=== PATIENT | female | born 1985 | race African-American/Black ===

== ENCOUNTER 2017-02-28 01:19 | Emergency (ER) | payer OTHER ==
--- NOTE | 2017-02-28 02:15 | PDOC ---
History of Present Illness - General Chief Complaint: Vaginal Bleeding Stated Complaint: /14 WKS,SPOTTING Time Seen by Provider: 02/28/17 01:48 - History of Present Illness Initial Comments: 02/28/17 02:14 CHIEF COMPLAINT: vag bleeding in HISTORY OF PRESENT ILLNESS: 31 yo F 14 weeks F presents to ED with vaginal bleeding since "tonight around 11:30 pm." Patient reports "I always have some discomfort during my so I don't know if I'm having any pain." Patient reports that the bleeding "is like a period" and states that she has a right sided headache. She also reports "seeing black spots" since last week. She denies any shortness of breath, chest pain, palpitations, or swelling in her legs. She denies any recent travel or extended periods of immobility. PAST MEDICAL HISTORY: Denies past medical history FAMILY HISTORY: Denies SOCIAL HISTORY: Denies tobacco, alcohol, illicit drug use. SURGICAL HISTORY: Denies ALLERGIES: No known drug allergies REVIEW OF SYSTEMS General/Constitutional: Denies fever or chills. Denies weakness, weight change. HEENT: Denies change in vision. Denies ear pain or discharge. Denies sore throat. Cardiovascular: Denies chest pain or shortness of breath. Respiratory: Denies cough, wheezing, or hemoptysis. Gastrointestinal: "The nausea is always there." Denies vomiting, diarrhea or constipation. Denies rectal bleeding. Genitourinary: Denies dysuria, frequency, or change in urination. Musculoskeletal: Denies joint or muscle swelling or pain. Denies neck or back pain. Skin and breasts: Denies rash or easy bruising. Neurologic: R sided headache. Denies vertigo, loss of consciousness, or loss of sensation. PHYSICAL EXAM General Appearance: Well-appearing, appropriately dressed. No apparent distress. HEENT: EOMI, PERRLA, normal ENT inspection, normal voice, TMs normal, pharynx normal. No conjunctival pallor. No photophobia, scleral icterus. Neck: Supple. Trachea midline. No tenderness, rigidity, carotid bruit, stridor , lymphadenopathy, or thyromegaly. Respiratory/Chest: Lungs CTAB. No shortness of breath, chest tenderness, respiratory distress, accessory muscle use. No crackles, rales, rhonchi, stridor , wheezing, dullness Cardiovascular: RRR. S1, S2. Vascular Pulses: Dorsalis-Pedis (R): 2+, Dorsalis-Pedis (L): 2+ Gastrointestinal/Abdominal: Normal bowel sounds. Abdomen soft, non-distended. No tenderness or rebound tenderness. No organomegaly, pulsatile mass, guarding , hernia, hepatomegaly, splenomegaly. Pelvic Exam: did not perform as patient is past 1st trimester and ultrasound was completed and read with closed os prior to exam Musculoskeletal/Extremities: Normal inspection. FROM of all extremities, normal capillary refill. Pelvis Stable. No CVA tenderness. No tenderness to extremities, pedal edema, swelling, erythema or deformity. Integumentary: Appropriate color, dry, warm. 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 Fully oriented, alert. Appropriate mood/affect. Motor strength 5/5. No appreciable EOM palsy, facial droop or sensory deficit. Past History - Past Medical History Allergies/Adverse Reactions: Allergies Allergy/AdvReac Type Severity Reaction Status Date / Time No Known Allergies Allergy Verified 02/28/17 02:18 Home Medications: Ambulatory Orders NK [No Known Home Medication] 02/28/17 ED Treatment Course - LABORATORY CBC & Chemistry Diagram: 02/28/17 03:58 02/28/17 02:18 Medical Decision Making - Medical Decision Making 02/28/17 03:07 31 yo F 14 weeks F presents to ED with vaginal bleeding since "tonight around 11:30 pm." -CBC, CMP, PT/INR, beta hcg -TV US Hg 12.6, Hct 37.5 Ultrasound positive for twin live IUP with EGA of 13 weeks and 4 days for fetus A with normal FHR of 163 bpm. EGA of 13 weeks and 5 days of fetus B. Cervix is 4.1 cm in length and closed. Patient in significant amount of discomfort. Will hydrate with 500 cc IVF and give IV Tylenol, repeat CBC to confirm hemodynamic stability and reassess. Repeat Hg 11.6, Hct 34.3 Patient reassessed, states her headache is feeling better after she was able to take a nap. However, at this time patient states she is still actively bleeding. Discussed case with on-call OB Lei; she will come to evaluate patient. 02/28/17 05:06 Patient given strict instructions for bedrest for the next four days and follow up ultrasound with OBGYN this Monday. (See Dr. Odom's note.) OB referrals provided to patient; advised patient to heed advice from Dr. Odom and of signs and symptoms for return to ER; patient verbalized understanding and agrees to plan. *DC/Admit/Observation/Transfer Diagnosis at time of Disposition: Vaginal bleeding before 22 weeks gestation - Discharge Dispostion Disposition: HOME Condition at time of disposition: Stable Admit: No - Referrals Referrals: Korina Angela MD [Staff Physician] - Mary Oodm MD [Staff Physician] - William Agrawal MD [Staff Physician] - - Patient Instructions Printed Discharge Instructions: Support (Alternative Therapy), DI for Threatened , DI for Vaginal Bleeding During Additional Instructions: You MUST stay on strict bedrest for the next four days as directed by Dr. Odom. As per your discussion with Dr. Odom, please make the appointment with your OBGYN for a repeat ultrasound THIS MONDAY. If you develop any significant bleeding (more than one soaked pad an hour), palpitations, shortness of breath, dizziness, weakness, swelling in your legs, or ANY new or concerning symptoms, please return to the ER immediately. - Post Discharge Activity Forms/Work/School Notes: Back to Work
[2017-02-28 02:18] VITALS: BP 133/70; PULSE 73; TEMP 98.7; BMI 26.5
[2017-02-28 02:37] LABS: URINE APPEARANCE CLEAR; URINE BILIRUBIN NEGATIVE (NEGATIVE); URINE BLOOD 3+ (NEGATIVE); URINE COLOR LTYELLOW; URINE GLUCOSE (UA) NEGATIVE (NEGATIVE); URINE KETONE NEGATIVE (NEGATIVE); URINE NITRITE NEGATIVE (NEGATIVE); URINE PROTEIN NEGATIVE (NEGATIVE); URINE UROBILINOGEN NEGATIVE mg/dL (0.2-1.0)
[2017-02-28 02:42] LABS: BASOPHIL 0.8 % (0-2.0); EOSINOPHIL 1.9 % (0-4.5); MCHC 33.7 g/dl (32.0-36.0); MEAN CELL VOLUME 91.9 fl (80-96); MEAN PLT VOLUME 9.4 fl (7.5-11.1); NEUTROPHILS 57.8 % (42.8-82.8); PLATELET COUNT 190 K/MM3 (134-434); RDW 14.4 % (11.6-15.6); WHITE BLOOD COUNT 8.1 K/mm3 (4.0-10.0)
[2017-02-28 02:49] LABS: URINE MUCUS RARE; URINE RBC 22 /hpf (0-3)
[2017-02-28 03:02] LABS: ALBUMIN 3.2 g/dl (3.4-5.0); ANION GAP 10 (8-16); BILIRUBIN,TOTAL 0.4 mg/dL (0.2-1.0); CALCIUM 8.4 mg/dL (8.5-10.1); CO2 24 mmol/L (21-32); CREATININE 0.6 mg/dL (0.55-1.02); GLUCOSE,RANDOM 93 mg/dL (74-106); SGOT/AST 7 U/L (15-37); SGPT/ALT 23 U/L (12-78); TOT PROT 6.9 g/dl (6.4-8.2)
[2017-02-28 03:03] LABS: ALK PHOS 63 U/L (45-117)
[2017-02-28] MEDS ORDERED: ACETAMINOPHEN 1000 MG/100 ML VIAL (NON FORMULARY) IVPB ONE (03:12)
[2017-02-28] MEDS ORDERED: SODIUM CHLORIDE 0.9% 1000 ML INFUS.BAG IV ONE ×2 (03:12→03:15)
[2017-02-28] MEDS ORDERED: ACETAMINOPHEN INJECTION 100 ML IVPB ONE (03:23)
[2017-02-28 04:06] LABS: BASOPHIL 0.8 % (0-2.0); EOSINOPHIL 1.6 % (0-4.5); MCH 30.9 pg (25.7-33.7); MCHC 33.7 g/dl (32.0-36.0); MEAN CELL VOLUME 91.5 fl (80-96); MEAN PLT VOLUME 9.2 fl (7.5-11.1); NEUTROPHILS 57.7 % (42.8-82.8); PLATELET COUNT 173 K/MM3 (134-434); RDW 14.5 % (11.6-15.6); WHITE BLOOD COUNT 7.9 K/mm3 (4.0-10.0)
--- NOTE | 2017-02-28 05:46 | CON.OBG ---
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 Patient states that she had a Nuvaring when she found out that she was ; and has removed it since. She has not started care yet but she had a sonogram done showing evidence of twin gestation. She denies any abdominal cramps. She denies any recent sexual activities. She states that bleeding started while she was in bed. 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 History of Recent Travel: No Home Medications - Allergies Allergies/Adverse Reactions: Allergies Allergy/AdvReac Type Severity Reaction Status Date / Time No Known Allergies Allergy Verified 02/28/17 02:18 - Home Medications Home Medications: Ambulatory Orders NK [No Known Home Medication] 02/28/17 Family Disease History - Family Disease History Family History: Unremarkable Review of Systems - Review of Systems Constitutional: reports: No Symptoms Eyes: reports: No Symptoms HENT: reports: No Symptoms Neck: reports: No Symptoms Cardiovascular: reports: No Symptoms Respiratory: reports: No Symptoms Gastrointestinal: reports: No Symptoms Genitourinary: reports: Vaginal Bleeding Breasts: reports: No Symptoms Reported Musculoskeletal: reports: No Symptoms Integumentary: reports: No Symptoms Neurological: reports: No Symptoms Endocrine: reports: No Symptoms Hematology/Lymphatic: reports: No Symptoms Psychiatric: reports: No Symptoms Pain Intensity: 0 Physical Exam-AGRICULTURE ENGINEER Vital Signs: Vital Signs Temperature 98.7 F 02/28/17 01:49 Pulse Rate 73 02/28/17 01:49 Respiratory Rate 16 02/28/17 01:49 Blood Pressure 133/70 02/28/17 01:49 O2 Sat by Pulse Oximetry (%) 100 02/28/17 01:49 Constitutional: Yes: Well Nourished Eyes: Yes: Conjunctiva Clear HENT: Yes: Atraumatic Neck: Yes: Supple, Trachea Midline Cardiovascular: Yes: Regular Rate and Rhythm Respiratory: Yes: Regular, CTA Bilaterally Gastrointestinal: Yes: Normal Bowel Sounds External Genitalia: Yes: Normal Vaginal Exam: Yes: Discharge (Bloody discharge) Cervix: Yes: Other (Os closed) Uterus: Yes: Other ( Gravid) Breast(s): Yes: WNL Musculoskeletal: Yes: WNL Extremities: Yes: WNL Neurological: Yes: Alert, Oriented ...Motor Strength: WNL Psychiatric: Yes: Alert, Oriented Labs: CBC, BMP 02/28/17 03:58 02/28/17 02:18 Problem List - Problems (1) Twin gestation in second trimester Code(s): O30.002 - TWIN PREG, UNSP NUM PLCNTA & AMNIO SACS, SECOND TRIMESTER Qualifiers: Multiple gestation type: unspecified Qualified Code(s): O30.002 - Twin , unspecified number of placenta and unspecified number of amniotic sacs, second trimester; O30.002 - Twin , unspecified number of placenta and unspecified number of amniotic sacs, second trimester Assessment/Plan IUP @ 13 weeks Twin gestation Vaginal bleeding in Strict bed rest recommended Follow up with Livestock Commission Agent this week
[2017-02-28 08:19] LABS: URINE WBC 2 /hpf (3-5)
[2017-02-28 10:17] LABS: URINE LEUK ESTERASE Negative (NEGATIVE)
== END 2017-02-28 05:18 | disposition home or self-care (01) ==
LOC: JER 01:19
PROC: 3E033NZ Introduction of Analgesics, Hypnotics, Sedatives into Peripheral Vein, Percutaneous Approach (ICD-10-PCS; principal; 2017-02-28)
DX: O30.001 Twin pregnancy, unspecified number of placenta and unspecified number of amniotic sacs, first trimester (principal); O20.8 Other hemorrhage in early pregnancy; Z3A.13 13 weeks gestation of pregnancy
CPT/HCPCS: 36415; 76801-TC; 80053; 81003; 81015; 84702; 85025; 86850; 86900; 86901; 87086; 99282-25

== ENCOUNTER 2017-06-13 11:30 | Inpatient (IN) | payer OTHER ==
[2017-06-13] MEDS ORDERED: DEXTROSE 5%-LACTATED RINGERS 500 ML IV ONE (12:00)
[2017-06-13] MEDS ORDERED: BETAMET ACET/BETAMET NA PH 30 MG/5 ML VIAL ONE (12:43)
[2017-06-13] MEDS ORDERED: DEXTROSE 5%-LACTATED RINGERS 1,000 ML IV SCH (13:00)
[2017-06-13] MEDS ORDERED: BETAMET ACET/BETAMET NA PH 30 MG/5 ML VIAL IM ONE (13:00)
[2017-06-13 13:09] LABS: BASO % 0.2 % (0-2.0); EOS % 1.7 % (0-4.5); HEMATOCRIT 36.2 % (32.4-45.2); HEMOGLOBIN 11.9 GM/dL (10.7-15.3); LYMPH % 19.9 % (8-40); MCH 30.9 pg (25.7-33.7); MEAN CELL VOLUME 93.5 fl (80-96); MEAN PLT VOLUME 9.3 fl (7.5-11.1); MONO % 7.3 % (3.8-10.2); NEUT % 70.9 % (42.8-82.8); PLATELET COUNT 150 K/MM3 (134-434); RBC 3.87 M/mm3 (3.60-5.2); RDW 14.6 % (11.6-15.6); WHITE BLOOD COUNT 6.8 K/mm3 (4.0-10.0)
[2017-06-13 13:16] VITALS: BMI 32.8
[2017-06-13 13:25] LABS: INR 0.96 (0.82-1.09); PROTHROMBIN TIME (PATIENT) 10.8 SEC (9.98-11.88)
[2017-06-13 13:27] LABS: ACTIVATED PTT 27.9 SECONDS (26.9-34.4)
[2017-06-13 13:40] LABS: ANION GAP 7 (8-16); BLOOD UREA NITROGEN 4 mg/dL (7-18); CALCIUM 8.6 mg/dL (8.5-10.1); CHLORIDE 105 mmol/L (98-107); CO2 27 mmol/L (21-32); CREATININE 0.6 mg/dL (0.55-1.02); GLUCOSE,RANDOM 139 mg/dL (74-106); POTASSIUM 3.1 mmol/L (3.5-5.1); SODIUM 139 mmol/L (136-145)
[2017-06-13] MEDS: DEXTROSE 5%-LACTATED RINGERS 1,000 ML IV SCH ×2 (14:30→22:51)
[2017-06-13] MEDS ORDERED: ELECTROLYTE-148 SOLN 1,000 ML IV SCH (21:30)
--- NOTE | 2017-06-13 22:00 | HP ---
Past Medical History - Admission Chief Complaint: Cervical incompetence. 28 weeks. abdominal pain History of Present Illness: 32 yo EDC with twin gestation showing cervical incompetence and funneling done by [facility] pt was sent to LD from [facility] USg showing funneling and 1-2 cm cervix pt admitted for steroids and monitoring o bleeding History Source: Patient Limitations to Obtaining History: No Limitations - Past Medical History ...: 3 ...Para: 2 ...Term: 2 ...: 0 ...Spon : 0 ...Induced : 0 ...Multiple Gestation: 1 ...EDC by Sono: 09/04/17 - Past Surgical History Past Surgical History: Yes: None Hx Myomectomy: No Hx Transabdominal Cerclage: No - Smoking History Smoking history: Never smoked - Alcohol/Substance Use Hx Alcohol Use: No History of Substance Use: reports: None - Social History Usual Living Arrangement: Yes: With 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 History of Recent Travel: No Home Medications - Allergies Allergies/Adverse Reactions: Allergies Allergy/AdvReac Type Severity Reaction Status Date / Time No Known Allergies Allergy Verified 02/28/17 02:18 - Home Medications Home Medications: Ambulatory Orders Vitamins (Sjr) - 1 tab PO DAILY 06/13/17 Unisom 1 tab PO DAILY 06/13/17 Review of Systems - Review of Systems Constitutional: reports: No Symptoms Eyes: reports: No Symptoms HENT: reports: No Symptoms Neck: reports: No Symptoms Cardiovascular: reports: No Symptoms Respiratory: reports: No Symptoms Gastrointestinal: reports: Abdominal Pain Genitourinary: reports: No Symptoms Breasts: reports: No Symptoms Reported Musculoskeletal: reports: No Symptoms Integumentary: reports: No Symptoms Neurological: reports: No Symptoms Endocrine: reports: No Symptoms Hematology/Lymphatic: reports: No Symptoms Psychiatric: reports: No Symptoms Physical Exam - Maternity Vital Signs: Vital Signs Temperature 98.7 F 06/13/17 14:00 Pulse Rate 86 06/13/17 15:00 Respiratory Rate 20 06/13/17 15:00 Blood Pressure 146/79 06/13/17 15:00 O2 Sat by Pulse Oximetry (%) Constitutional: Yes: Well Nourished, No Distress Cardiovascular: Yes: WNL Lungs: Clear to auscultation Breast(s): Yes: WNL - Abdominal Exam/OB Number of Fetuses: Multiple Contractions: Yes Regularity: Irregular Intensity: Unaware Monitor Mode: External Category: I Accelerations: Non-Uniform Decelerations: None - Vaginal Exam/OB Vaginal Bleediing: No Speculum Exam: Yes Dilatation (cm): closed Effacement (%): 70 % Amniotic Membrane Status: Intact - Physical Exam Musculoskeletal: Yes: WNL Extremities: Yes: WNL Edema: No - Labs Lab Results: CBC, BMP 06/13/17 12:50 06/13/17 12:50 Hemorrhage Risk Assessment - Risk Factors Risk Score: 0 Risk Level: Low Risk Problem List - Problems (1) Twin gestation in second trimester Code(s): O30.002 - TWIN PREG, UNSP NUM PLCNTA & AMNIO SACS, SECOND TRIMESTER Qualifiers: Assessment/Plan IUP at 28 week twin gestation cervical incompetence ro UTI Cat 1 Plan Steriods x 2 doses EFM monitoring bed rest IVF if stable transfer to floor
[2017-06-13 22:53] LABS: URINE APPEARANCE CLEAR; URINE BILIRUBIN NEGATIVE (NEGATIVE); URINE BLOOD NEGATIVE (NEGATIVE); URINE COLOR COLORLESS; URINE GLUCOSE (UA) 3+ (NEGATIVE); URINE KETONE NEGATIVE (NEGATIVE); URINE LEUK ESTERASE NEGATIVE (NEGATIVE); URINE NITRITE NEGATIVE (NEGATIVE); URINE PROTEIN NEGATIVE (NEGATIVE); URINE UROBILINOGEN NEGATIVE mg/dL (0.2-1.0)
[2017-06-14] MEDS: DEXTROSE 5%-LACTATED RINGERS 1,000 ML IV SCH (05:21)
--- NOTE | 2017-06-14 06:31 | PN ---
Progress Note (SOAP) - Subjective Chief Complaint: Pt doing better less pain pt getting 2nd steroid shot today - Current Medications Current Medications: Active Medications Betamethasone Acet/Betameth SodPhos (Celestone Soluspan -) 12.5 mg IM [facility] Stop: 06/14/17 16:00 Dextrose/Lactated Ringer's (D5-Lr -) 1,000 mls @ 125 mls/hr IV ASDIR [facility] Last Admin: 06/14/17 05:21 Dose: 125 mls/hr Parenteral Electrolytes (Plasma-Lyte 148 -) 1,000 mls @ 125 mls/hr IV ASDIR [facility] - Objective Vital Signs: Vital Signs Temperature 98.2 F 06/14/17 05:54 Pulse Rate 90 06/14/17 05:54 Respiratory Rate 18 06/14/17 05:54 Blood Pressure 129/78 06/14/17 05:54 O2 Sat by Pulse Oximetry (%) Constitutional: Yes: Well Nourished, No Distress Gastrointestinal: Yes: WNL Breast(s): Yes: WNL Musculoskeletal: Yes: WNL Extremities: Yes: WNL Neurological: Yes: WNL, Alert, Oriented Labs Lab Results: CBC, BMP 06/13/17 12:50 06/13/17 12:50 Problem List - Problems (1) Twin gestation in second trimester Code(s): O30.002 - TWIN PREG, UNSP NUM PLCNTA & AMNIO SACS, SECOND TRIMESTER Qualifiers: (2) Cervical incompetence affecting management of in second trimester , antepartum Code(s): O34.32 - MATERNAL CARE FOR CERVICAL INCOMPETENCE, SECOND TRIMESTER Assessment/Plan IUP at 28 week twin gestation cervical incompetence Cat 1 Plan Steriods x 2 doses EFM monitoring bed rest at home needs disability IVF DC home if stable after steroid shot
[2017-06-14] MEDS ORDERED: BETAMET ACET/BETAMET NA PH 30 MG/5 ML VIAL IM SCH (08:00)
[2017-06-14 11:58] VITALS: BP 123/54; PULSE 93; TEMP 98.7
== END 2017-06-14 17:20 | disposition home or self-care (01) | DRG 782 ==
LOC: JDEL 11:30 → JLDR 12:00 → J3W 23:15
PROVIDERS: ADMIT Obstetrics & Gynecology; ATTEND Obstetrics & Gynecology
DX: O34.33 Maternal care for cervical incompetence, third trimester (principal); O30.093 Twin pregnancy, unable to determine number of placenta and number of amniotic sacs, third trimester; Z3A.28 28 weeks gestation of pregnancy
CPT/HCPCS: 36415; 80048; 81003; 85025; 85610; 85730; 86593; 86850; 86900; 86901; 87086; 96372

== ENCOUNTER 2017-07-07 06:40 | Inpatient (IN) | payer OTHER ==
[2017-07-07] MEDS ORDERED: AMPICILLIN - 2 GM in SODIUM CHLORIDE 100 ML IVPB ONE (08:19)
[2017-07-07] MEDS ORDERED: ELECTROLYTE-148 SOLN 1,000 ML IV SCH (08:30)
[2017-07-07 08:40] VITALS: BMI 34.4
[2017-07-07] MEDS ORDERED: AMPICILLIN SODIUM 2 GM VIAL ONE (08:42)
[2017-07-07 09:58] LABS: BASO % 0.4 % (0-2.0); EOS % 1.3 % (0-4.5); HEMATOCRIT 36.8 % (32.4-45.2); LYMPH % 13.2 % (8-40); MCH 30.5 pg (25.7-33.7); MCHC 32.6 g/dl (32.0-36.0); MEAN CELL VOLUME 93.7 fl (80-96); MEAN PLT VOLUME 9.7 fl (7.5-11.1); MONO % 13.3 % (3.8-10.2); NEUT % 71.8 % (42.8-82.8); PLATELET COUNT 134 K/MM3 (134-434); RBC 3.93 M/mm3 (3.60-5.2); RDW 14.3 % (11.6-15.6); WHITE BLOOD COUNT 7.3 K/mm3 (4.0-10.0)
--- NOTE | 2017-07-07 09:59 | HP ---
Past Medical History - Primary Care Physician PCP:: Korina Angela - Admission Chief Complaint: labor. 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 Travel: No Home Medications - Allergies Allergies/Adverse Reactions: Allergies Allergy/AdvReac Type Severity Reaction Status Date / Time No Known Allergies Allergy Verified 02/28/17 02:18 - Home Medications Home Medications: Ambulatory Orders Vitamins (Sjr) - 1 tab PO DAILY 06/13/17 Unisom 1 tab PO DAILY 06/13/17 Review of Systems - Review of Systems Constitutional: reports: No Symptoms Eyes: reports: No Symptoms HENT: reports: No Symptoms Neck: reports: No Symptoms Cardiovascular: reports: No Symptoms Respiratory: reports: No Symptoms Gastrointestinal: reports: Vomiting Blood Genitourinary: reports: Vaginal Bleeding Breasts: reports: No Symptoms Reported Musculoskeletal: reports: No Symptoms Integumentary: reports: No Symptoms Neurological: reports: No Symptoms Endocrine: reports: No Symptoms Hematology/Lymphatic: reports: No Symptoms Psychiatric: reports: No Symptoms Physical Exam - Maternity Vital Signs: Vital Signs Temperature 98.2 F 07/07/17 08:31 Pulse Rate 101 H 07/07/17 08:31 Respiratory Rate 20 07/07/17 08:31 Blood Pressure 130/81 07/07/17 08:31 O2 Sat by Pulse Oximetry (%) Constitutional: Yes: Well Nourished, Mild Distress Neck: Yes: WNL Cardiovascular: Yes: WNL Lungs: Clear to auscultation Breast(s): Yes: WNL - Abdominal Exam/OB Fundal Height: 34 Number of Fetuses: Multiple Presentation: Vertex Contractions: Yes Regularity: Regular Intensity: Moderate Category: I Accelerations: Non-Uniform Decelerations: None - Vaginal Exam/OB Vaginal Bleediing: Yes, Light Dilatation (cm): closed Effacement (%): 50 Amniotic Membrane Status: Intact Presentation: Vertex/Position Station: -1 - Physical Exam Musculoskeletal: Yes: WNL Extremities: Yes: WNL Edema: No Psychiatric: Yes: WNL, Alert, Oriented Hemorrhage Risk Assessment - Risk Factors Medium Risk Factors: Yes: Multiple gestation Risk Score: 1 Risk Level: Medium Risk Problem List - Problems (1) labor in third trimester Code(s): O60.03 - LABOR WITHOUT DELIVERY, THIRD TRIMESTER Qualifiers: Fetus number: fetus 1 of multiple gestation (2) Twin gestation in third trimester Code(s): O30.003 - TWIN PREG, UNSP NUM PLCNTA & AMNIO SACS, THIRD TRIMESTER (3) Vaginal bleeding during , antepartum Code(s): O46.90 - ANTEPARTUM HEMORRHAGE, UNSPECIFIED, UNSPECIFIED TRIMESTER Assessment/Plan Twin gestation at 32 week labor vaginal bleeding Plan admit Mgso4 GBS proph ampiciliin
[2017-07-07] MEDS ORDERED: BETAMET ACET/BETAMET NA PH 30 MG/5 ML VIAL IM ONE (10:00)
[2017-07-07 10:10] LABS: INR 0.95 (0.82-1.09); PROTHROMBIN TIME (PATIENT) 10.7 SEC (9.98-11.88)
[2017-07-07 10:13] LABS: ACTIVATED PTT 31.1 SECONDS (26.9-34.4)
[2017-07-07] MEDS ORDERED: MAGNESIUM 4GM/H20 - 4 GM/100 ML IVPB IVPB ONE (10:25)
[2017-07-07] MEDS ORDERED: MAGNESIUM SULFATE 20GM/500ML - 20 GM/500 ML INFUS.BAG ONE ×2 (10:25→17:44)
[2017-07-07] MEDS ORDERED: BETAMET ACET/BETAMET NA PH 30 MG/5 ML VIAL ONE (10:25)
[2017-07-07] MEDS ORDERED: MAGNESIUM 4GM/H20 - 4 GM/100 ML IVPB IVPB SCH (11:00)
[2017-07-07] MEDS: ELECTROLYTE-148 SOLN 1,000 ML IV SCH (11:00)
[2017-07-07] MEDS ORDERED: MAGNESIUM SULFATE 20GM/500ML - 20 GM/500 ML INFUS.BAG IVPB SCH (11:30)
[2017-07-07] MEDS: AMPICILLIN - 1 GM in SODIUM CHLORIDE 100 ML IVPB SCH ×3 (12:57→21:00)
[2017-07-07] MEDS ORDERED: AMPICILLIN SODIUM 1 GM VIAL ONE (17:11)
[2017-07-07] MEDS ORDERED: ACETAMINOPHEN 325 MG TABLET (FP) ONE (17:24)
[2017-07-07] MEDS ORDERED: ACETAMINOPHEN 325 MG TABLET (FP) PO ONE (17:30)
--- NOTE | 2017-07-07 23:46 | PN ---
Ante-Partal Exam - Subjective Subjective: Pt still with contraction - improving Vital Signs: Vital Signs Temperature 98.9 F 07/07/17 23:00 Pulse Rate 91 H 07/07/17 23:00 Respiratory Rate 18 07/07/17 23:00 Blood Pressure 150/74 07/07/17 23:00 O2 Sat by Pulse Oximetry (%) Bleeding: No Headache: No Visual changes: No Right upper quadrant pain: No - Contractions Contractions: Yes Regularity: Regular Intensity: Mild Monitor Mode: External - Exam during Labor Variability: Moderate Category: I Monitor Accelerations: Present Monitor Decelerations: None Exam: Vaginal Dilatation (cm): closed Amniotic Membrane Status: Intact Presentation: Vertex Station: -1 - Intrapartum Hemorrhage Risk Risk Score: 1 Risk Level: Medium Risk - Assessment/Plan Assessment/Plan: IUP 32 weeks Twin Gestation labor plan bed rest continue MgSo4 Mag level continue abs
[2017-07-08] MEDS ORDERED: ACETAMINOPHEN 325 MG TABLET (FP) PO ONE
[2017-07-08] MEDS ORDERED: ACETAMINOPHEN 325 MG TABLET (FP) ONE (00:20)
[2017-07-08] MEDS: AMPICILLIN - 1 GM in SODIUM CHLORIDE 100 ML IVPB SCH ×3 (03:00→22:12)
[2017-07-08] MEDS ORDERED: ELECTROLYTE-148 SOLN 1,000 ML IV ONE (06:30)
[2017-07-08 08:06] LABS: URINE APPEARANCE CLEAR; URINE BILIRUBIN NEGATIVE (NEGATIVE); URINE BLOOD 3+ (NEGATIVE); URINE COLOR LTYELLOW; URINE GLUCOSE (UA) NEGATIVE (NEGATIVE); URINE KETONE 2+ (NEGATIVE); URINE LEUK ESTERASE NEGATIVE (NEGATIVE); URINE NITRITE NEGATIVE (NEGATIVE); URINE PROTEIN NEGATIVE (NEGATIVE); URINE UROBILINOGEN NEGATIVE mg/dL (0.2-1.0)
[2017-07-08] MEDS ORDERED: MAGNESIUM SULFATE 20GM/500ML - 20 GM/500 ML INFUS.BAG IVPB SCH (08:15)
[2017-07-08 08:40] LABS: EPI CELLS RARE /HPF (FEW)
[2017-07-08] MEDS ORDERED: AMPICILLIN SODIUM 1 GM VIAL ONE (09:18)
[2017-07-08] MEDS ORDERED: BETAMET ACET/BETAMET NA PH 30 MG/5 ML VIAL IM ONE (10:01)
--- NOTE | 2017-07-08 23:20 | PN ---
Ante-Partal Exam - Subjective Subjective: Pt feeling better Less contractions Pt on 2 gm of MagS04 SP shot of steroids Vital Signs: Vital Signs Temperature 99.2 F 07/08/17 18:00 Pulse Rate 93 H 07/08/17 21:49 Respiratory Rate 20 07/08/17 21:49 Blood Pressure 136/85 07/08/17 21:49 O2 Sat by Pulse Oximetry (%) Bleeding: No Headache: No Visual changes: No Right upper quadrant pain: No - Contractions Contractions: Yes Regularity: Irregular Intensity: Mild Monitor Mode: External - Exam during Labor Variability: Moderate Category: I Monitor Accelerations: Present Monitor Decelerations: None Presentation: Vertex - Intrapartum Hemorrhage Risk Risk Score: 0 Risk Level: Low Risk - Assessment/Plan Assessment/Plan: Twin gestation Peterm Labor Plan AprS04 Transfer to Antepartum if stable Beta Metasone IM NST Q shift
[2017-07-09] MEDS: AMPICILLIN - 1 GM in SODIUM CHLORIDE 100 ML IVPB SCH ×2 (06:55→12:27)
--- NOTE | 2017-07-09 08:50 | PN ---
Progress Note (SOAP) - Subjective Chief Complaint: Pt with contractions mild 3/hour no rom, bleeding +AFM - Current Medications Current Medications: Active Medications Parenteral Electrolytes (Plasma-Lyte 148 -) 1,000 mls @ 75 mls/hr IV ASDIR [facility] Last Admin: 07/07/17 11:00 Dose: 75 mls/hr Ampicillin Sodium 1 gm/ Sodium (Chloride) 100 mls @ 200 mls/hr IVPB Q6H [facility] [place] Last Admin: 07/09/17 06:55 Dose: Not Given - Objective Vital Signs: Vital Signs Temperature 98.8 F 07/09/17 06:00 Pulse Rate 90 07/09/17 06:00 Respiratory Rate 20 07/09/17 06:00 Blood Pressure 139/79 07/09/17 06:00 O2 Sat by Pulse Oximetry (%) Constitutional: Yes: Well Nourished, No Distress Gastrointestinal: Yes: WNL, Normal Bowel Sounds, Soft Genitourinary: Yes: Breast(s): Yes: WNL Musculoskeletal: Yes: WNL Extremities: Yes: WNL Peripheral Pulses WNL: No Edema: No Neurological: Yes: WNL, Alert, Oriented Psychiatric: Yes: WNL, Alert Labs Lab Results: CBC, BMP 07/07/17 09:35 Problem List - Problems (1) Twin gestation in third trimester Code(s): O30.003 - TWIN PREG, UNSP NUM PLCNTA & AMNIO SACS, THIRD TRIMESTER (2) labor in third trimester Code(s): O60.03 - LABOR WITHOUT DELIVERY, THIRD TRIMESTER Qualifiers: Fetus number: fetus 1 of multiple gestation
[2017-07-09] MEDS ORDERED: RANITIDINE HCL 150 MG TABLET (FP) PO SCH (10:00)
[2017-07-09] MEDS: ELECTROLYTE-148 SOLN 1,000 ML IV SCH (12:28)
[2017-07-09 19:06] VITALS: BP 152/86; PULSE 72; TEMP 98.4
--- NOTE | 2017-07-10 22:42 | DS ---
Physical Exam-[employer] WORK[employer] Vital Signs: Vital Signs Temperature 98.4 F 07/09/17 18:00 Pulse Rate 72 07/09/17 18:00 Respiratory Rate 20 07/09/17 18:00 Blood Pressure 152/86 07/09/17 18:00 O2 Sat by Pulse Oximetry (%) Constitutional: Yes: Well Nourished, No Distress Cardiovascular: Yes: WNL Respiratory: Yes: WNL Gastrointestinal: Yes: WNL, Normal Bowel Sounds, Soft Renal/: Yes: (twins) Breast(s): Yes: WNL Musculoskeletal: Yes: WNL Extremities: Yes: WNL Edema: No Neurological: Yes: WNL, Alert, Oriented Labs: CBC, BMP 07/07/17 09:35 Discharge Summary Reason For Visit: LABOR Labor Twin Gestation at 32 week sp nicole s/p mag Plan DC home RV 1 week to office Hospital Course: Magnesium Sulfate Steroids unremarkable Condition: Good - Instructions Diet, Activity, Other Instructions: Physical activity Bed rest with bath room no climbing stairs or heavy lifting Diet There are no dietary restrictions. Eat healthy, high-fiber foods. Drink 6 to 8 glasses of liquid each day. This will assist in keeping your bowels are regular. Pain management You may take Tylenol or acetaminophen or Ibuprofen (for example, Motrin, Advil etc.) from my pain prescription medication is ordered should be taken as prescribed for moderate to severe pain. Call MD for any of the following: Severe pain or Labor Rupture of membranes Fever of 101 or higher Excessive bleeding or rupture of membranes Inability to urinate Referrals: Korina Angela MD [Staff Physician] - (Follow up as per Dr Angela instructions.) Disposition: HOME - Home Medications Comprehensive Discharge Medication List: Ambulatory Orders Vitamins (Sjr) - 1 tab PO DAILY 06/13/17 Unisom 1 tab PO DAILY 06/13/17
== END 2017-07-09 19:05 | disposition home or self-care (01) | DRG 778 ==
LOC: JDEL 06:40 → JLDR 08:10 → J3W 07-08 12:52
PROVIDERS: ADMIT Obstetrics & Gynecology; ATTEND Obstetrics & Gynecology
DX: O60.03 Preterm labor without delivery, third trimester (principal); O30.003 Twin pregnancy, unspecified number of placenta and unspecified number of amniotic sacs, third trimester; Z3A.32 32 weeks gestation of pregnancy
CPT/HCPCS: 36415; 81003; 81015; 83735; 85025; 85610; 85730; 86593; 86850; 86900; 86901; 87086; 87186; 96372

== ENCOUNTER 2017-07-24 17:45 | Inpatient (IN) | payer OTHER ==
[2017-07-24] MEDS ORDERED: ELECTROLYTE-148 SOLN 1,000 ML IV ONE (18:00)
[2017-07-24 19:18] VITALS: BMI 32.8
--- NOTE | 2017-07-24 19:44 | HP ---
Past Medical History - Primary Care Physician PCP:: Korina Angela - Admission Chief Complaint: contractions. Twins at 34 week. Hypertension. Breech Presentaiton History of Present Illness: 32 yo EDC 09/04/17 EGA 34 week with twin gestation with shortened cervix sp admissions for labor admitted for elevated BP and contractions Breech/breech presentation no rom, bleeding or LENZ or RUQ pain History Source: Patient Limitations to Obtaining History: No Limitations - Past Medical History ...: 3 ...Para: 2 ...Term: 2 ...: 0 ...Spon : 0 ...Induced : 0 ...Multiple Gestation: 0 ...LMP: 11/28/16 ... 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 History of Recent Travel: No Home Medications - Allergies Allergies/Adverse Reactions: Allergies Allergy/AdvReac Type Severity Reaction Status Date / Time No Known Allergies Allergy Verified 07/25/17 07:17 - Home Medications Home Medications: Ambulatory Orders Labetalol HCl [Normodyne -] 200 mg PO BID #60 tablet 07/25/17 Pnv No.95/Ferrous Fum/Folic AC [ Vitamin Tablet] 1 each PO DAILY Progesterone, Micronized [Progesterone] 100 mg PO DAILY 07/25/17 Physical Exam - Maternity Vital Signs: Vital Signs Temperature 98.3 F 07/24/17 19:08 Pulse Rate 70 07/24/17 19:08 Respiratory Rate 20 07/24/17 19:08 Blood Pressure 169/95 07/24/17 19:08 O2 Sat by Pulse Oximetry (%) Constitutional: Yes: Well Nourished, No Distress - Abdominal Exam/OB Number of Fetuses: Single Presentation: Breech Contractions: Yes Regularity: Regular Category: I Accelerations: None Decelerations: None - Vaginal Exam/OB Dilatation (cm): closed Effacement (%): 80 Amniotic Membrane Status: Intact Presentation: Asif Breech - Physical Exam Musculoskeletal: Yes: WNL Extremities: Yes: WNL Integumentary: Yes: WNL Psychiatric: Yes: WNL, Alert, Oriented Hemorrhage Risk Assessment - Risk Factors Medium Risk Factors: Yes: Multiple gestation Risk Score: 1 Risk Level: Medium Risk Problem List - Problems (1) Cervical incompetence affecting management of in third trimester, antepartum Code(s): O34.33 - MATERNAL CARE FOR CERVICAL INCOMPETENCE, THIRD TRIMESTER (2) labor in third trimester Code(s): O60.03 - LABOR WITHOUT DELIVERY, THIRD TRIMESTER (3) Twin gestation in third trimester Code(s): O30.003 - TWIN PREG, UNSP NUM PLCNTA & AMNIO SACS, THIRD TRIMESTER (4) Hypertension affecting in third trimester Code(s): O16.3 - UNSPECIFIED MATERNAL HYPERTENSION, THIRD TRIMESTER (5) Breech presentation, antepartum Code(s): O32.1XX0 - MATERNAL CARE FOR BREECH PRESENTATION, UNSP Qualifiers: Fetus number: fetus 2 of multiple gestation Qualified Code(s): O32.1XX2 - Maternal care for breech presentation, fetus 2 Assessment/Plan IUP at 34 week Hypertension labor r/o preeclampsia incompetent cervix Breech presentation Plan Admit labetalol 200mg po bid PE labs Will do CS if labs abnormal
[2017-07-24] MEDS: LABETALOL HCL 200 MG TABLET (FP) PO SCH (19:50)
[2017-07-24] MEDS ORDERED: LABETALOL HCL 200 MG TABLET (FP) PO SCH ×2 (20:06→22:00)
[2017-07-24 20:18] LABS: BASO % 0.3 % (0-2.0); EOS % 1.9 % (0-4.5); HEMOGLOBIN 14.3 GM/dL (10.7-15.3); LYMPH % 23.7 % (8-40); MCH 31.3 pg (25.7-33.7); MCHC 34.1 g/dl (32.0-36.0); MEAN CELL VOLUME 91.9 fl (80-96); MEAN PLT VOLUME 10.5 fl (7.5-11.1); MONO % 9.3 % (3.8-10.2); NEUT % 64.8 % (42.8-82.8); PLATELET COUNT 154 K/MM3 (134-434); RBC 4.57 M/mm3 (3.60-5.2); RDW 14.4 % (11.6-15.6); WHITE BLOOD COUNT 7.7 K/mm3 (4.0-10.0)
[2017-07-24] MEDS ORDERED: ACETAMINOPHEN 325 MG TABLET (FP) ONE (20:18)
[2017-07-24 20:19] LABS: URINE APPEARANCE CLEAR; URINE BILIRUBIN NEGATIVE (NEGATIVE); URINE BLOOD NEGATIVE (NEGATIVE); URINE COLOR LTYELLOW; URINE GLUCOSE (UA) NEGATIVE (NEGATIVE); URINE KETONE NEGATIVE (NEGATIVE); URINE LEUK ESTERASE NEGATIVE (NEGATIVE); URINE NITRITE NEGATIVE (NEGATIVE); URINE UROBILINOGEN NEGATIVE mg/dL (0.2-1.0)
[2017-07-24 20:27] LABS: URINE PROTEIN 1+ (NEGATIVE)
[2017-07-24 20:34] LABS: INR 0.92 (0.82-1.09); PROTHROMBIN TIME (PATIENT) 10.4 SEC (9.98-11.88)
[2017-07-24 20:37] LABS: ACTIVATED PTT 27.8 SECONDS (26.9-34.4)
[2017-07-24 20:52] LABS: ANION GAP 11 (8-16); BLOOD UREA NITROGEN 4 mg/dL (7-18); CALCIUM 8.8 mg/dL (8.5-10.1); CHLORIDE 102 mmol/L (98-107); CO2 23 mmol/L (21-32); CREATININE 0.6 mg/dL (0.55-1.02); GAMMA GLUTAMYL TRANSPEPTIDASE 37 U/L (5-85); GLUCOSE,RANDOM 72 mg/dL (74-106); POTASSIUM 4.1 mmol/L (3.5-5.1); SGOT/AST 15 U/L (15-37); SGPT/ALT 13 U/L (12-78); SODIUM 136 mmol/L (136-145)
[2017-07-24 20:56] LABS: URIC ACID 3.8 mg/dL (2.6-7.2)
[2017-07-24 21:08] LABS: EPI CELLS RARE /HPF (FEW)
--- NOTE | 2017-07-24 21:10 | PN ---
Ante-Partal Exam - Subjective Subjective: Pt with headache Vital Signs: Vital Signs Temperature 98.3 F 07/24/17 19:08 Pulse Rate 94 H 07/24/17 20:15 Respiratory Rate 20 07/24/17 20:15 Blood Pressure 159/97 07/24/17 20:15 O2 Sat by Pulse Oximetry (%) Bleeding: No Headache: Yes Visual changes: No Right upper quadrant pain: No - Contractions Contractions: Yes Regularity: Regular Intensity: Mild/Mod Monitor Mode: External - Exam during Labor Category: I Monitor Accelerations: Present Monitor Decelerations: None Exam: Vaginal Dilatation (cm): closed Amniotic Membrane Status: Intact Presentation: Asif Breech Station: -1 - Intrapartum Hemorrhage Risk Risk Score: 2 Risk Level: High Risk - Assessment/Plan Assessment/Plan: BP 160/ will give Ivp 20 mg labetelol preeclamptic labs normal will do 24 rine collection Plan continue BP meds repeat labs in am MFM consult after labs in am observation' labetalol 200mg BID
[2017-07-24] MEDS ORDERED: ACETAMINOPHEN 325 MG TABLET (FP) PO ONE (21:15)
[2017-07-24] MEDS ORDERED: LABETALOL HCL 5 MG/1 ML (100MG/20 ML VIAL) IVPUSH ONE (21:15)
[2017-07-24] MEDS ORDERED: LABETALOL HCL 5 MG/1 ML (100MG/20 ML VIAL) ONE (21:21)
[2017-07-25] MEDS: LABETALOL HCL 200 MG TABLET (FP) PO SCH ×3 (00:19→21:09)
[2017-07-25 08:52] LABS: RETICULOCYTES 2.3 % (0.5-1.5)
[2017-07-25 09:15] LABS: URIC ACID 4.8 mg/dL (2.6-7.2)
[2017-07-25] MEDS ORDERED: ELECTROLYTE-148 SOLN 1,000 ML IV SCH (09:15)
[2017-07-25] MEDS ORDERED: LABETALOL HCL 200 MG TABLET (FP) ONE (10:03)
--- NOTE | 2017-07-25 11:33 | PN ---
Ante-Partal Exam - Subjective Subjective: Pt doing well mild LENZ occ contraction Vital Signs: Vital Signs Temperature 97.7 F 07/25/17 10:16 Pulse Rate 75 07/25/17 11:05 Respiratory Rate 20 07/25/17 11:05 Blood Pressure 146/68 07/25/17 11:05 O2 Sat by Pulse Oximetry (%) Bleeding: No Headache: No Visual changes: No Right upper quadrant pain: No - Contractions Contractions: Yes Regularity: Irritability Intensity: Mild Monitor Mode: External - Exam during Labor Variability: Moderate Category: I Monitor Accelerations: Present Monitor Decelerations: None Amniotic Membrane Status: Intact Station: -1 - Intrapartum Hemorrhage Risk Risk Score: 1 Risk Level: Medium Risk - Assessment/Plan Assessment/Plan: Twins at 34 weeks labor Hypertension Plan Labetalol 200mg po BID 24 urine collection transfer to [place] home after 24 hr urine collection
[2017-07-25] MEDS ORDERED: ACETAMINOPHEN 325 MG TABLET (FP) PO PRN (17:01)
--- NOTE | 2017-07-25 21:40 | DS ---
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 Vital Signs: Vital Signs Temperature 98.4 F 07/25/17 13:08 Pulse Rate 90 07/25/17 17:19 Respiratory Rate 20 07/25/17 17:19 Blood Pressure 150/78 07/25/17 17:19 O2 Sat by Pulse Oximetry (%) Constitutional: Yes: Well Nourished, No Distress HENT: Yes: WNL Neck: Yes: WNL Cardiovascular: Yes: WNL Respiratory: Yes: WNL Gastrointestinal: Yes: WNL Breast(s): Yes: WNL Musculoskeletal: Yes: WNL Extremities: Yes: WNL Edema: No Neurological: Yes: WNL, Alert, Oriented Labs: CBC, BMP 07/25/17 08:25 07/24/17 19:45 Delivery, Single - [place] Feeding Plan Initial Plan: Elected not to breastfeed exclusively throughout hospitalization Discharge Summary Reason For Visit: labor/ Hypertension Current Active Problems Cervical incompetence affecting management of in third trimester, antepartum (Acute) Hypertension affecting in third trimester (Acute) Procedures: Principal: IV fluids. Hypertension meds Hospital Course: unremarkable Condition: Good - Instructions Diet, Activity, Other Instructions: Physical activity Bedrest with Bathroom privileges Diet There are no dietary restrictions. Eat healthy, high-fiber foods. Drink 6 to 8 glasses of liquid each day. This will assist in keeping your bowels are regular. Pain management You may take Tylenol or acetaminophen from my pain prescription medication is ordered should be taken as prescribed for moderate to severe pain. Call MD for any of the following: labor Rupture of membranes Headache Severe pain not relieved by medication Fever of 101 or higher Excessive bleeding or drainage on dressing Inability to urinate Referrals: Korina Angela MD [Staff Physician] - Disposition: HOME - Home Medications Comprehensive Discharge Medication List: Ambulatory Orders Labetalol HCl [Normodyne -] 200 mg PO BID #60 tablet 07/25/17 Pnv No.95/Ferrous Fum/Folic AC [ Vitamin Tablet] 1 each PO DAILY Progesterone, Micronized [Progesterone] 100 mg PO DAILY 07/25/17
[2017-07-25 22:10] VITALS: BP 138/98; PULSE 89; TEMP 97.9
[2017-07-25 23:50] LABS: URINE CREATININE 42.8 mg/dL (20-320); URINE CREATININE 43.5 mg/dL (20-320)
[2017-07-25 23:51] LABS: RATIO URIN PROTEIN/URIN CREAT 0.63 MG/DL; URINE 24 HOUR CREATININE 1587.7 MG/24HR (600-1800)
[2017-07-26] MEDS ORDERED: PRENATAL VITAMINS W/ FOLIC ACID TABLET (FP) PO SCH (10:00)
[2017-07-26] MEDS ORDERED: [UNRECOGNIZED DRUG - OTHER] PO SCH (10:00)
[2017-07-26] MEDS ORDERED: PROGESTERONE MICRONIZED 100 MG PO SCH (10:00)
== END 2017-07-25 22:00 | disposition home or self-care (01) | DRG 778 ==
LOC: JDEL 17:45 → JLDR 17:46 → JDEL 18:16 → J3W 07-25 12:52
PROVIDERS: ADMIT Obstetrics & Gynecology; ATTEND Obstetrics & Gynecology
DX: O60.03 Preterm labor without delivery, third trimester (principal); O34.33 Maternal care for cervical incompetence, third trimester; O13.3 Gestational [pregnancy-induced] hypertension without significant proteinuria, third trimester; O32.1XX0 Maternal care for breech presentation, not applicable or unspecified; Z3A.34 34 weeks gestation of pregnancy; O30.003 Twin pregnancy, unspecified number of placenta and unspecified number of amniotic sacs, third trimester
CPT/HCPCS: 36415; 80048; 81003; 81015; 82570; 82575; 82977; 83010; 84156; 84166; 84450; 84460; 84550; 85025; 85032; 85044; 85610; 85730; 86593; 86850; 86900; 86901

== ENCOUNTER 2017-08-15 12:40 | Inpatient (IN) | payer OTHER ==
[2017-08-15 14:28] VITALS: BMI 32.7
[2017-08-15 15:00] LABS: BASO % 0.6 % (0-2.0); EOS % 1.6 % (0-4.5); HEMATOCRIT 38.9 % (32.4-45.2); HEMOGLOBIN 13.5 GM/dL (10.7-15.3); LYMPH % 23.9 % (8-40); MCHC 34.6 g/dl (32.0-36.0); MEAN CELL VOLUME 92.5 fl (80-96); MEAN PLT VOLUME 11.1 fl (7.5-11.1); MONO % 11.9 % (3.8-10.2); PLATELET COUNT 125 K/MM3 (134-434); RDW 14.5 % (11.6-15.6); WHITE BLOOD COUNT 6.5 K/mm3 (4.0-10.0)
[2017-08-15 15:21] LABS: ANION GAP 8 (8-16); BLOOD UREA NITROGEN 10 mg/dL (7-18); CALCIUM 8.2 mg/dL (8.5-10.1); CHLORIDE 105 mmol/L (98-107); CO2 25 mmol/L (21-32); CREATININE 0.8 mg/dL (0.55-1.02); GLUCOSE,RANDOM 89 mg/dL (74-106); POTASSIUM 4.4 mmol/L (3.5-5.1); SODIUM 138 mmol/L (136-145)
[2017-08-15 15:31] LABS: URINE APPEARANCE CLEAR; URINE BILIRUBIN NEGATIVE (<2.0 mg/dL); URINE BLOOD NEGATIVE (NEGATIVE); URINE COLOR DKYELLOW; URINE GLUCOSE (UA) NEGATIVE (NEGATIVE); URINE KETONE NEGATIVE (NEGATIVE); URINE LEUK ESTERASE NEGATIVE (NEGATIVE); URINE NITRITE NEGATIVE (NEGATIVE)
[2017-08-15 15:33] LABS: INR 0.88 (0.82-1.09); PROTHROMBIN TIME (PATIENT) 9.9 SEC (9.98-11.88)
[2017-08-15 15:36] LABS: ACTIVATED PTT 28.3 SECONDS (26.9-34.4)
[2017-08-15] MEDS ORDERED: ELECTROLYTE-148 SOLN 500 ML IV ONE (16:00)
[2017-08-15] MEDS ORDERED: CITRIC ACID/SODIUM CITRATE 30 ML UNIT-DOSE CUP PO ONE (16:00)
[2017-08-15 16:09] LABS: URINE PROTEIN 3+ (NEGATIVE)
[2017-08-15 16:13] LABS: EPI CELLS RARE /HPF (FEW); URINE BACTERIA RARE /hpf (NONE SEEN)
[2017-08-15] MEDS ORDERED: ELECTROLYTE-148 SOLN 1,000 ML IV SCH ×2 (16:30→17:00)
[2017-08-15] MEDS ORDERED: HEPARIN NA (PORCINE) 5,000 UNITS/ML 1ML VIAL SQ ONE (17:06)
[2017-08-15] MEDS ORDERED: IBUPROFEN 600 MG TABLET (FP) PO PRN (17:06)
[2017-08-15] MEDS ORDERED: METHYLERGONOVINE MALEATE 0.2 MG/1 ML AMP IM PRN (17:06)
--- NOTE | 2017-08-15 17:06 | HP ---
Past Medical History - Primary Care Physician PCP:: Korina Angela - Admission Chief Complaint: Twin gestation at 37 weeks History of Present Illness: 32 yo EDC 09/04/17 EGA 37.1 weeks with twin gestation, chronic hypertension , elevated BP, breech presentation for Primary Section History Source: Patient Limitations to Obtaining History: No Limitations - Past Medical History Cardiovascular: Yes: HTN ...: 3 ...Para: 2 ...Term: 2 ...: 0 ...LMP: 11/28/16 ... 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 History of Recent Travel: No Home Medications - Allergies Allergies/Adverse Reactions: Allergies Allergy/AdvReac Type Severity Reaction Status Date / Time No Known Allergies Allergy Verified 08/10/17 18:30 - Home Medications Home Medications: Ambulatory Orders Labetalol HCl [Normodyne -] 200 mg PO BID #60 tablet 07/25/17 Pnv No.95/Ferrous Fum/Folic AC [ Vitamin Tablet] 1 each PO DAILY Review of Systems - Review of Systems Constitutional: reports: No Symptoms Eyes: reports: No Symptoms HENT: reports: No Symptoms Neck: reports: No Symptoms Cardiovascular: reports: No Symptoms Respiratory: reports: No Symptoms Gastrointestinal: reports: No Symptoms Genitourinary: reports: No Symptoms Breasts: reports: No Symptoms Reported Musculoskeletal: reports: No Symptoms Integumentary: reports: No Symptoms Neurological: reports: No Symptoms Endocrine: reports: No Symptoms Hematology/Lymphatic: reports: No Symptoms Psychiatric: reports: No Symptoms Physical Exam - Maternity Vital Signs: Vital Signs Temperature 97.4 F L 08/15/17 14:01 Pulse Rate 72 08/15/17 16:00 Respiratory Rate 20 08/15/17 16:00 Blood Pressure 133/85 08/15/17 16:00 O2 Sat by Pulse Oximetry (%) - Labs Lab Results: CBC, BMP 08/15/17 14:10 08/15/17 14:10 Hemorrhage Risk Assessment - Risk Factors Medium Risk Factors: Yes: Multiple gestation Risk Score: 1 Risk Level: Medium Risk Problem List - Problems (1) 37 weeks gestation of Code(s): Z3A.37 - 37 WEEKS GESTATION OF (2) Breech presentation, antepartum Code(s): O32.1XX0 - MATERNAL CARE FOR BREECH PRESENTATION, UNSP Qualifiers: Fetus number: fetus 2 of multiple gestation Qualified Code(s): O32.1XX2 - Maternal care for breech presentation, fetus 2 (3) Hypertension affecting in third trimester Code(s): O16.3 - UNSPECIFIED MATERNAL HYPERTENSION, THIRD TRIMESTER (4) Twin gestation in third trimester Code(s): O30.003 - TWIN PREG, UNSP NUM PLCNTA & AMNIO SACS, THIRD TRIMESTER Assessment/Plan Twin gestation at 37 weeks Chronic Hypertension Breech presentation Multiparity Plan Primary Section Bilateral salpingectomy
[2017-08-15] MEDS ORDERED: morphine SULFATE/Preservative Free 0.5 MG/ML (1cc Syringe) ONE (18:00)
[2017-08-15 18:04] LABS: GAMMA GLUTAMYL TRANSPEPTIDASE 48 U/L (5-85); SGPT/ALT 19 U/L (12-78); URIC ACID 5.3 mg/dL (2.6-7.2)
[2017-08-15] MEDS ORDERED: ceFAZolin SODIUM 1 GM VIAL ONE (18:13)
[2017-08-15 18:18] LABS: SGOT/AST 20 U/L (15-37)
[2017-08-15] MEDS ORDERED: OXYTOCIN 10 UNITS/ML VIAL ONE (18:24)
[2017-08-15] MEDS ORDERED: OXYTOCIN 20 UNITS in 0.9% NS 20 UNIT/1,000 ML INFUS.BAG IV ONE ×2 (18:26→21:38)
[2017-08-15] MEDS ORDERED: IBUPROFEN 800 MG/8 ML IJ IVPB PRN (18:55)
[2017-08-15] MEDS ORDERED: ONDANSETRON 4 MG/2 ML VIAL IVPUSH PRN (18:56)
[2017-08-15] MEDS ORDERED: LACTATED RINGERS SOLUTION 1,000 ML IV SCH (19:00)
--- NOTE | 2017-08-15 19:09 | OP ---
Operative Note - Note: Operative Date: 08/15/17 Pre-Operative Diagnosis: Twin gestation at 37 week. Breech presentation. Chronic Hypertension Operation: Primary low transverse Section Findings: Twin A Double Footling breach Twin B Transverse lie Post-Operative Diagnosis: Same as Pre-op Surgeon: Korina Angela Rescue Boat Operator: Amado Hill Anesthesiologist/ENGINE RESEARCH ENGINEER: Charlie Winkler Anesthesia: Spinal Estimated Blood Loss (mls): 700 Operative Report Dictated: Yes
[2017-08-15] MEDS ORDERED: OXYTOCIN 20 UNITS in 0.9% NS 20 UNIT/1,000 ML INFUS.BAG IV SCH (19:15)
[2017-08-15 19:24] LABS: ARTERIAL BLOOD GAS BASE EXCESS -3.4 meq/l (-2-2)
[2017-08-15 19:29] LABS: ARTERIAL BLOOD GAS BASE EXCESS -0.8 meq/l (-2-2); ARTERIAL BLOOD GAS PCO2 51.5 mmHg (35-45); ARTERIAL BLOOD GAS pH 7.32 (7.35-7.45)
[2017-08-15 19:35] LABS: ARTERIAL BLD GAS O2 SATURATION 42.7 % (90-98.9); ARTERIAL BLOOD GAS PO2 21.3 mmHg (80-100)
[2017-08-15 19:37] LABS: ARTERIAL BLOOD GAS PCO2 75.3 mmHg (35-45); ARTERIAL BLOOD GAS pH 7.19 (7.35-7.45)
[2017-08-15 19:38] LABS: ARTERIAL BLD GAS O2 SATURATION 6.7 % (90-98.9); ARTERIAL BLOOD GAS PO2 9.8 mmHg (80-100)
[2017-08-15 19:39] LABS: VENOUS PC02 49.3 mmHg (38-52); VENOUS PH 7.35 (7.32-7.42); VENOUS PO2 25.2 mmHg (28-48)
[2017-08-15] MEDS ORDERED: LABETALOL HCL 200 MG TABLET (FP) ONE (19:59)
[2017-08-15] MEDS ORDERED: LABETALOL HCL 200 MG TABLET (FP) PO ONE (20:15)
[2017-08-15] MEDS ORDERED: LABETALOL HCL 5 MG/1 ML (100MG/20 ML VIAL) IVPUSH ONE ×2 (20:36→22:20)
[2017-08-15] MEDS ORDERED: ACETAMINOPHEN INJECTION 100 ML IVPB ONE (21:26)
[2017-08-15] MEDS ORDERED: LABETALOL HCL 5 MG/1 ML (100MG/20 ML VIAL) ONE (21:27)
[2017-08-15] MEDS ORDERED: LABETALOL HCL 200 MG TABLET (FP) PO SCH (22:00)
[2017-08-15] MEDS ORDERED: ACETAMINOPHEN 1000 MG/100 ML VIAL (NON FORMULARY) IVPB ONE (22:45)
--- NOTE | 2017-08-15 23:54 | OP ---
DATE OF OPERATION: 08/15/2017 PREOPERATIVE DIAGNOSIS: Twin gestation at 37 weeks, chronic hypertension, and breech presentation. OPERATION: Primary low transverse section. POSTOPERATIVE DIAGNOSIS: Twin A live male born in double footling breech and twin B born in vertex position. SURGEON: Gregory Angela MD LAMP TESTER AND INSPECTOR: AGUS Gore as MD unavailable. ANESETHESIA: Spinal. ANESTHESIOLOGIST: Charlie Winkler MD PROCEDURE: Patient was taken to the operating room and placed in the supine position. Prepped and draped in the usual sterile fashion. A timeout was performed in accordance with hospital regulation. Pfannenstiel skin incision was made with a scalpel. Cautery was used to go through the layers of the abdominal wall to the fascia. The fascia was cut in the midline and cautery was then used to open the fascia in a smiley-face fashion. Stephane was then used to bluntly and sharply dissect the rectus muscles from the fascia. The muscles were split in the midline. Peritoneal cavity was entered and carried upward and downward. Bladder retractor was then placed. The scalpel was then used to make a low transverse uterine incision. The incision was carried upward using bandage scissors. A live male was delivered in double footling breech position. Shoulders were delivered without difficulty. Head was delivered without difficulty. Delayed cord clamping was done. Cord was clamped and cut. Cord blood obtained. Cord pH obtained. Infant was handed to the pneudraulic systems mechanic. The second twin was noted to be in transverse lie and converted to a vertex position. Head was delivered from the OP position. Shoulders were delivered without difficulty. Cord was clamped and cut. Delayed clamping done. Cord blood obtained. Cord pH obtained. was handed to pneudraulic systems mechanic. Live male twin B and live male infant twin A delivered. Placenta was manually extracted from the uterus. The uterus was exteriorized and cleaned with clean lap. The uterine incision was then closed using 0 Biosyn suture, first layer continuous and locking and the second layer imbricating the first layer. Hemostasis was achieved. Tubes were bilaterally grasped and LigaSure was then used to coagulate and cut the fallopian tube on the right. The same procedure was repeated on the left side. Hemostasis was achieved. Uterus was interiorized. Abdominal cavity was cleaned with new lap pads. Ovaries were noted to be polycystic and normal. The peritoneum was then closed in 0 Biosyn suture continuous. Fascia was then closed using 0 Vicryl suture in two parts. Muscle had been approximated in the midline. Interrupted with the subcutaneous was done with 0 Biosyn suture and 3-0 Vicryl suture in the subcuticular fashion was then done. The wound was washed and dressed. Patient tolerated the procedure well. Steri-Strips were placed. Estimated blood loss was 700 mL. All lap pad count was normal. Abdominal sweep had been done. GREGORY ANGELA M.D. [id number] MTDD
[2017-08-16] MEDS ORDERED: MAGNESIUM 4GM/H20 - 4 GM/100 ML IVPB IVPB ONE ×2 (00:16→00:30)
[2017-08-16 00:34] LABS: RETICULOCYTES 2.13 % (0.5-1.5)
[2017-08-16 00:35] LABS: URINE APPEARANCE CLEAR; URINE BILIRUBIN NEGATIVE (<2.0 mg/dL); URINE BLOOD 1+ (NEGATIVE); URINE COLOR LTYELLOW; URINE GLUCOSE (UA) NEGATIVE (NEGATIVE); URINE KETONE NEGATIVE (NEGATIVE); URINE LEUK ESTERASE NEGATIVE (NEGATIVE); URINE NITRITE NEGATIVE (NEGATIVE); URINE UROBILINOGEN NEGATIVE mg/dL (0.2-1.0)
[2017-08-16 00:38] LABS: URINE PROTEIN 2+ (NEGATIVE)
[2017-08-16 00:52] LABS: EPI CELLS RARE /HPF (FEW); URINE MUCUS RARE
[2017-08-16] MEDS: MAGNESIUM SULFATE 20GM/500ML - 20 GM/500 ML INFUS.BAG IVPB SCH ×2 (01:20→10:15)
[2017-08-16 01:34] LABS: URIC ACID 4.8 mg/dL (2.6-7.2)
[2017-08-16] MEDS ORDERED: OXYTOCIN 20 UNITS in 0.9% NS 20 UNIT/1,000 ML INFUS.BAG IV SCH (03:45)
[2017-08-16] MEDS ORDERED: ACETAMINOPHEN 325 MG TABLET (FP) ONE (04:45)
[2017-08-16] MEDS: ACETAMINOPHEN 325 MG TABLET (FP) PO PRN ×2 (05:00→17:34)
[2017-08-16 07:52] LABS: BASO % 0.5 % (0-2.0); EOS % 0.7 % (0-4.5); HEMATOCRIT 46.1 % (32.4-45.2); HEMOGLOBIN 15.7 GM/dL (10.7-15.3); LYMPH % 14.9 % (8-40); MCH 31.3 pg (25.7-33.7); MEAN CELL VOLUME 92.1 fl (80-96); MEAN PLT VOLUME 9.6 fl (7.5-11.1); MONO % 9.2 % (3.8-10.2); NEUT % 74.7 % (42.8-82.8); PLATELET COUNT 113 K/MM3 (134-434); RBC 5.01 M/mm3 (3.60-5.2); RDW 14.6 % (11.6-15.6); WHITE BLOOD COUNT 10.1 K/mm3 (4.0-10.0)
[2017-08-16] MEDS ORDERED: OXYTOCIN 20 UNITS in 0.9% NS 20 UNIT/1,000 ML INFUS.BAG IV ONE (07:56)
[2017-08-16] MEDS ORDERED: NIFEdipine 10 MG CAPSULE (FP) ONE (09:59)
[2017-08-16] MEDS ORDERED: LABETALOL HCL 200 MG TABLET (FP) PO SCH ×3 (10:00→22:00)
[2017-08-16] MEDS: PRENATAL VITAMINS W/ FOLIC ACID TABLET (FP) PO SCH (10:05)
[2017-08-16] MEDS: NIFEdipine E.R. 30 MG TABLET (FP) PO SCH (10:05)
[2017-08-16] MEDS ORDERED: MAGNESIUM SULFATE 20GM/500ML - 20 GM/500 ML INFUS.BAG ONE (10:09)
[2017-08-16] MEDS ORDERED: SODIUM CHLORIDE 1,000 ML IV SCH (13:30)
[2017-08-16] MEDS: oxyCODONE HCL 5 MG TABLET PO PRN ×2 (13:45→17:33)
[2017-08-16] MEDS ORDERED: oxyCODONE HCL 5 MG TABLET ONE (13:45)
--- NOTE | 2017-08-16 13:52 | PN ---
Progress Note, Physician Chief Complaint: s/p c section under spinal anesthesia History of Present Illness: duramorph for post op pain control. post op day one. spinal anesthesia - Current Medication List Current Medications: Active Medications Acetaminophen (Tylenol -) 650 mg PO Q4H PRN PRN Reason: FEVER Last Admin: 08/16/17 05:00 Dose: 650 mg Bisacodyl (Dulcolax Suppository -) 10 mg RC PRN PRN PRN Reason: CONSTIPATION Diphenhydramine HCl (Benadryl Injection -) 25 mg IVPUSH Q4H PRN PRN Reason: FOR ITCHING Enoxaparin Sodium (Lovenox -) 40 mg SQ DAILY [facility] Sodium Chloride (Normal Saline -) 1,000 mls @ 75 mls/hr IV ASDIR [facility] Labetalol HCl (Normodyne -) 200 mg PO TID [facility] Methylergonovine Maleate (Methergine Injection -) 0.2 mg IM Q4H PRN PRN Reason: Excessive Bleeding (L&D) Nifedipine (Procardia Xl -) 30 mg PO DAILY [facility] Last Admin: 08/16/17 10:05 Dose: 30 mg Ondansetron HCl (Zofran Injection) 4 mg IVPUSH Q6H PRN PRN Reason: NAUSEA AND/OR VOMITING Oxycodone HCl (Roxicodone -) 5 mg PO Q4H PRN PRN Reason: PAIN LEVEL 1-5 Oxycodone HCl (Roxicodone -) 10 mg PO Q4H PRN PRN Reason: PAIN LEVEL 6-10 Multivit/Folic Acid/Iron ( Vitamins (Sjr) -) 1 tab PO DAILY [facility] Last Admin: 08/16/17 10:05 Dose: Not Given Simethicone (Mylicon -) 80 mg PO Q4H PRN PRN Reason: GAS - Objective Vital Signs: Vital Signs Temperature 98.8 F 08/16/17 10:00 Pulse Rate 90 08/16/17 12:30 Respiratory Rate 18 08/16/17 12:30 Blood Pressure 133/78 08/16/17 12:30 O2 Sat by Pulse Oximetry (%) 98 08/15/17 20:00 Constitutional: Yes: Well Nourished Cardiovascular: Yes: WNL Respiratory: Yes: WNL Gastrointestinal: Yes: WNL Neurological: Yes: WNL Labs: CBC, BMP 08/16/17 06:00 08/15/17 14:10 INR, PTT INR 0.88 (0.82-1.09) 08/15/17 14:10 Assessment/Plan No adverse effect from anesthetic, complaining of lower extremity numbness but was just stopped on mag sulphate, advised to see if numbness resolves after a few hours post mag sulphate. Pain controlled. dept of anesthesia will sign off at this time unless numbness does not resolve.
[2017-08-16] MEDS: SIMETHICONE 80 MG TAB.CHEW (FP) PO PRN (17:32)
--- NOTE | 2017-08-16 18:56 | CONSULT ---
Consult - text type - Consultation Consultation Note: Renal consult for hypertension This is a 32 year old woman with PMhx signifincat for possible RA who presented at 37 weeks twin gestation with hypertension. Pt denies any history of hypertension. + LENZ this afternoon. LENZ was severe earlier in the admission when BP was very high. No CP, SOB, N/V/D. PMhx: as above Allergies: NKDA Family hx: NC social Hx: No T/A/D ROS: as per HPI Vital Signs Temperature 98.9 F 08/16/17 18:21 Pulse Rate 84 08/16/17 18:21 Respiratory Rate 20 08/16/17 18:21 Blood Pressure 144/87 08/16/17 18:21 O2 Sat by Pulse Oximetry (%) 98 08/15/17 20:00 Intake & Output 08/13/17 08/14/17 08/15/17 08/16/17 23:59 23:59 23:59 23:59 Intake Total 1820 Output Total 650 3600 Balance -650 -1780 Weight 103.419 kg NAD awake and alert No LE edema CBC, BMP 08/16/17 06:00 08/15/17 14:10 Current Medications Acetaminophen (Tylenol -) 650 mg PO Q4H PRN PRN Reason: FEVER Last Admin: 08/16/17 17:34 Dose: 650 mg Bisacodyl (Dulcolax Suppository -) 10 mg RC PRN PRN PRN Reason: CONSTIPATION Diphenhydramine HCl (Benadryl Injection -) 25 mg IVPUSH Q4H PRN PRN Reason: FOR ITCHING Enoxaparin Sodium (Lovenox -) 40 mg SQ DAILY [facility] Sodium Chloride (Normal Saline -) 1,000 mls @ 75 mls/hr IV ASDIR [facility] Last Admin: 08/16/17 12:20 Dose: 75 mls/hr Labetalol HCl (Normodyne -) 200 mg PO BID [facility] Methylergonovine Maleate (Methergine Injection -) 0.2 mg IM Q4H PRN PRN Reason: Excessive Bleeding (L&D) Nifedipine (Procardia Xl -) 30 mg PO DAILY [facility] Last Admin: 08/16/17 10:05 Dose: 30 mg Ondansetron HCl (Zofran Injection) 4 mg IVPUSH Q6H PRN PRN Reason: NAUSEA AND/OR VOMITING Oxycodone HCl (Roxicodone -) 5 mg PO Q4H PRN PRN Reason: PAIN LEVEL 1-5 Last Admin: 08/16/17 17:33 Dose: 5 mg Oxycodone HCl (Roxicodone -) 10 mg PO Q4H PRN PRN Reason: PAIN LEVEL 6-10 Multivit/Folic Acid/Iron ( Vitamins (Sjr) -) 1 tab PO DAILY [facility] Last Admin: 08/16/17 10:05 Dose: Not Given Simethicone (Mylicon -) 80 mg PO Q4H PRN PRN Reason: GAS Last Admin: 08/16/17 17:32 Dose: 80 mg 32 year old woman wit PMhx of hypertension who presented at 37 weeks twin gestation with hypertension. # hypertesnion likely due to Preeclampisia with underlying hypertension Check UPCR continue nifedpine xl 30mg Daily continue Labetalol 200mg Q6h PRN for SBP > 160 or DBP > 100 Low salt diet pain control, avoid nsaids if possible Trend BP Thank you will follow Delano Izquierdo DO
[2017-08-16] MEDS: LABETALOL HCL 200 MG TABLET (FP) PO PRN (20:36)
--- NOTE | 2017-08-16 22:15 | PN ---
Progress Note (SOAP) - Subjective Chief Complaint: Pt feeling better - Current Medications Current Medications: Active Medications Acetaminophen (Tylenol -) 650 mg PO Q4H PRN PRN Reason: FEVER Last Admin: 08/16/17 17:34 Dose: 650 mg Bisacodyl (Dulcolax Suppository -) 10 mg RC PRN PRN PRN Reason: CONSTIPATION Diphenhydramine HCl (Benadryl Injection -) 25 mg IVPUSH Q4H PRN PRN Reason: FOR ITCHING Enoxaparin Sodium (Lovenox -) 40 mg SQ DAILY [facility] Labetalol HCl (Normodyne -) 200 mg PO Q6H PRN PRN Reason: HYPERTENSION Last Admin: 08/16/17 20:36 Dose: 200 mg Methylergonovine Maleate (Methergine Injection -) 0.2 mg IM Q4H PRN PRN Reason: Excessive Bleeding (L&D) Nifedipine (Procardia Xl -) 30 mg PO DAILY [facility] Last Admin: 08/16/17 10:05 Dose: 30 mg Ondansetron HCl (Zofran Injection) 4 mg IVPUSH Q6H PRN PRN Reason: NAUSEA AND/OR VOMITING Oxycodone HCl (Roxicodone -) 5 mg PO Q4H PRN PRN Reason: PAIN LEVEL 1-5 Last Admin: 08/16/17 17:33 Dose: 5 mg Oxycodone HCl (Roxicodone -) 10 mg PO Q4H PRN PRN Reason: PAIN LEVEL 6-10 Multivit/Folic Acid/Iron ( Vitamins (Sjr) -) 1 tab PO DAILY [facility] Last Admin: 08/16/17 10:05 Dose: Not Given Simethicone (Mylicon -) 80 mg PO Q4H PRN PRN Reason: GAS Last Admin: 08/16/17 17:32 Dose: 80 mg - Objective Vital Signs: Vital Signs Temperature 99.6 F 08/16/17 20:20 Pulse Rate 72 08/16/17 20:20 Respiratory Rate 17 08/16/17 21:00 Blood Pressure 172/105 08/16/17 20:20 O2 Sat by Pulse Oximetry (%) 96 08/16/17 20:20 Constitutional: Yes: Well Nourished, No Distress Gastrointestinal: Yes: WNL, Soft, Abdomen, Obese ....Post : Yes: Uterus firm, Uterus non-tender Musculoskeletal: Yes: WNL Extremities: Yes: WNL Peripheral Pulses WNL: No Edema: No Wound/Incision: Yes: Clean/Dry, Steri Strips, Dressing Removed Neurological: Yes: WNL, Alert, Oriented Labs Lab Results: CBC, BMP 08/16/17 06:00 08/15/17 14:10 Assessment/Plan SP CS and bilateral salpingectomy POD 1 elevated BP on meds consult appreciated by renal Plan OOB pain management ambulate Continue procardia hold on labetalol
[2017-08-16] MEDS: BISACODYL 10 MG SUPP.RECT RC PRN (23:54)
[2017-08-17] MEDS: ACETAMINOPHEN 325 MG TABLET (FP) PO PRN ×3 (00:19→12:46)
[2017-08-17] MEDS: oxyCODONE HCL 5 MG TABLET PO PRN ×3 (00:19→12:45)
[2017-08-17] MEDS: SIMETHICONE 80 MG TAB.CHEW (FP) PO PRN (08:27)
[2017-08-17] MEDS: LABETALOL HCL 200 MG TABLET (FP) PO PRN ×2 (08:28→17:39)
[2017-08-17] MEDS: NIFEdipine E.R. 30 MG TABLET (FP) PO SCH (10:16)
[2017-08-17] MEDS: ENOXAPARIN NA (PORCINE) 40 MG/0.4 ML DISP.SYRIN SQ SCH (10:16)
[2017-08-17] MEDS: PRENATAL VITAMINS W/ FOLIC ACID TABLET (FP) PO SCH (10:18)
--- NOTE | 2017-08-17 14:39 | PN ---
Post Progress Note - Subjective Subjective: 32 yo Para 3 status post primary , seen and evaluated. Doing well. She c/o incision pain.She denies any headache, blurry vision nor epigastric pain. She's on Labetalol. Post Day: 1 Type of Delivery: Primary C/S Vital Signs: Vital Signs Temperature 99.6 F 08/17/17 10:00 Pulse Rate 65 08/17/17 10:00 Respiratory Rate 16 08/17/17 10:00 Blood Pressure 134/87 08/17/17 11:39 O2 Sat by Pulse Oximetry (%) 96 08/16/17 20:20 Breast Exam: Yes: Soft Uterus: Yes: Fundus Firm Incision: Yes: Other (Steri strip in place) Abdomen/GI: Yes: Abdomen soft Lochia: Yes: Rubra Lochia, amount: Small Extremities: Yes: Calves non-tender Perineum: Yes: Intact Activity: Ambulating - Labs Labs: CBC WBC 10.1 K/mm3 (4.0-10.0) H D 08/16/17 06:00 RBC 5.01 M/mm3 (3.60-5.2) 08/16/17 06:00 Hgb 15.7 GM/dL (10.7-15.3) H D 08/16/17 06:00 Hct 46.1 % (32.4-45.2) H D 08/16/17 06:00 MCV 92.1 fl (80-96) 08/16/17 06:00 MCH 31.3 pg (25.7-33.7) 08/16/17 06:00 MCHC 34.0 g/dl (32.0-36.0) 08/16/17 06:00 RDW 14.6 % (11.6-15.6) 08/16/17 06:00 Plt Count 113 K/MM3 (134-434) L 08/16/17 06:00 MPV 9.6 fl (7.5-11.1) D 08/16/17 06:00 Neutrophils % 74.7 % (42.8-82.8) D 08/16/17 06:00 Lymphocytes % 14.9 % (8-40) D 08/16/17 06:00 Monocytes % 9.2 % (3.8-10.2) 08/16/17 06:00 Eosinophils % 0.7 % (0-4.5) 08/16/17 06:00 Basophils % 0.5 % (0-2.0) 08/16/17 06:00 Retic Count 2.13 % (0.5-1.5) H D 08/16/17 00:01 Haptoglobin 45 mg/dL (34-200) 08/15/17 16:00 Problem List - Problems (1) Status post primary low transverse section Code(s): Z98.891 - HISTORY OF UTERINE SCAR FROM PREVIOUS SURGERY Assessment/Plan Status post twin delivery by Stable Ambulation Analgesia as needed Continue post op care Continue Labetalol
--- NOTE | 2017-08-17 14:54 | PN ---
Progress Note (short form) - Note Progress Note: still with headache and nausea, less visual problems BP was high earlier and she was given labetalol but she refused nifedipine she had very low bp yesterday after a dose of nifedipine she is off mag Last Vital Signs Temp Pulse Resp BP Pulse Ox 99.6 F 65 16 134/87 96 08/17/17 10:00 08/17/17 10:00 08/17/17 10:00 08/17/17 11:39 08/16/17 20:20 lungs clear heart reg abd soft ext no edema CBC, BMP 08/16/17 06:00 08/15/17 14:10 IMP- PIH r/o underlying chronic HTN Plan- continue labetalol prn for now we can revisit use of nifedipine depending on BP values and patient acceptance f/u cbc for low platelets labs ordered
[2017-08-17 18:51] LABS: URINE APPEARANCE CLEAR; URINE BILIRUBIN NEGATIVE (<2.0 mg/dL); URINE BLOOD 3+ (NEGATIVE); URINE COLOR LTYELLOW; URINE GLUCOSE (UA) NEGATIVE (NEGATIVE); URINE KETONE NEGATIVE (NEGATIVE); URINE LEUK ESTERASE TRACE (NEGATIVE); URINE NITRITE NEGATIVE (NEGATIVE); URINE UROBILINOGEN NEGATIVE mg/dL (0.2-1.0)
[2017-08-17 19:28] LABS: URINE PROTEIN 2+ (NEGATIVE)
[2017-08-17 20:12] LABS: EPI CELLS RARE /HPF (FEW)
[2017-08-18] MEDS: ACETAMINOPHEN 325 MG TABLET (FP) PO PRN ×2 (00:27→17:41)
[2017-08-18] MEDS: oxyCODONE HCL 5 MG TABLET PO PRN ×2 (00:27→17:42)
[2017-08-18] MEDS: SIMETHICONE 80 MG TAB.CHEW (FP) PO PRN (00:28)
[2017-08-18] MEDS: BISACODYL 10 MG SUPP.RECT RC PRN ×2 (00:28→17:42)
[2017-08-18 07:56] LABS: BASO % 0.6 % (0-2.0); EOS % 1.6 % (0-4.5); HEMATOCRIT 38.8 % (32.4-45.2); HEMOGLOBIN 12.9 GM/dL (10.7-15.3); MCH 31.2 pg (25.7-33.7); MCHC 33.1 g/dl (32.0-36.0); MEAN CELL VOLUME 94.1 fl (80-96); MEAN PLT VOLUME 10.3 fl (7.5-11.1); MONO % 11.4 % (3.8-10.2); NEUT % 63.4 % (42.8-82.8); PLATELET COUNT 142 K/MM3 (134-434); RBC 4.13 M/mm3 (3.60-5.2); RDW 14.6 % (11.6-15.6); WHITE BLOOD COUNT 8.7 K/mm3 (4.0-10.0)
[2017-08-18] MEDS: LABETALOL HCL 200 MG TABLET (FP) PO PRN (08:04)
[2017-08-18 08:22] LABS: ALBUMIN 2.1 g/dl (3.4-5.0); ANION GAP 9 (8-16); BLOOD UREA NITROGEN 11 mg/dL (7-18); CALCIUM 8.1 mg/dL (8.5-10.1); CHLORIDE 104 mmol/L (98-107); CO2 26 mmol/L (21-32); GLUCOSE,RANDOM 77 mg/dL (74-106); POTASSIUM 3.9 mmol/L (3.5-5.1); SODIUM 139 mmol/L (136-145); URIC ACID 5.6 mg/dL (2.6-7.2)
[2017-08-18 08:28] LABS: ALK PHOS 290 U/L (45-117); BILIRUBIN,TOTAL 0.3 mg/dL (0.2-1.0); CREATININE 0.6 mg/dL (0.55-1.02); SGOT/AST 19 U/L (15-37); SGPT/ALT 18 U/L (12-78); TOT PROT 5.7 g/dl (6.4-8.2)
[2017-08-18] MEDS: ENOXAPARIN NA (PORCINE) 40 MG/0.4 ML DISP.SYRIN SQ SCH (10:06)
[2017-08-18] MEDS: PRENATAL VITAMINS W/ FOLIC ACID TABLET (FP) PO SCH (10:06)
[2017-08-18] MEDS: NIFEdipine E.R. 30 MG TABLET (FP) PO SCH (10:06)
--- NOTE | 2017-08-18 14:19 | PN ---
Progress Note (short form) - Note Progress Note: Renal Follow up for Hypertension Pt seen and examined at the bedside awake and alert no acute complaints no LENZ, CP today Vital Signs Temperature 98.9 F 08/18/17 14:00 Pulse Rate 76 08/18/17 14:00 Respiratory Rate 20 08/18/17 14:00 Blood Pressure 149/95 08/18/17 14:00 O2 Sat by Pulse Oximetry (%) 96 08/16/17 20:20 Intake & Output 08/15/17 08/16/17 08/17/17 08/18/17 23:59 23:59 23:59 23:59 Intake Total 1820 700 Output Total 650 3800 1600 1200 Balance -650 -1980 -1600 -500 Weight 103.419 kg NAD awake and alert No LE edema CBC, BMP 08/18/17 07:15 08/18/17 07:15 Current Medications Acetaminophen (Tylenol -) 650 mg PO Q4H PRN PRN Reason: FEVER Last Admin: 08/18/17 00:27 Dose: 650 mg Bisacodyl (Dulcolax Suppository -) 10 mg RC PRN PRN PRN Reason: CONSTIPATION Last Admin: 08/18/17 00:28 Dose: 10 mg Diphenhydramine HCl (Benadryl Injection -) 25 mg IVPUSH Q4H PRN PRN Reason: FOR ITCHING Last Admin: 08/16/17 23:08 Dose: 25 mg Enoxaparin Sodium (Lovenox -) 40 mg SQ DAILY [facility] Last Admin: 08/18/17 10:06 Dose: 40 mg Labetalol HCl (Normodyne -) 200 mg PO Q6H PRN PRN Reason: HYPERTENSION Last Admin: 08/18/17 08:04 Dose: 200 mg Methylergonovine Maleate (Methergine Injection -) 0.2 mg IM Q4H PRN PRN Reason: Excessive Bleeding (L&D) Nifedipine (Procardia Xl -) 30 mg PO DAILY [facility] Last Admin: 08/18/17 10:06 Dose: 30 mg Ondansetron HCl (Zofran Injection) 4 mg IVPUSH Q6H PRN PRN Reason: NAUSEA AND/OR VOMITING Oxycodone HCl (Roxicodone -) 5 mg PO Q4H PRN PRN Reason: PAIN LEVEL 1-5 Last Admin: 08/18/17 00:27 Dose: 5 mg Oxycodone HCl (Roxicodone -) 10 mg PO Q4H PRN PRN Reason: PAIN LEVEL 6-10 Last Admin: 08/17/17 12:45 Dose: 10 mg Multivit/Folic Acid/Iron ( Vitamins (Sjr) -) 1 tab PO DAILY [facility] Last Admin: 08/18/17 10:06 Dose: 1 tab Simethicone (Mylicon -) 80 mg PO Q4H PRN PRN Reason: GAS Last Admin: 08/18/17 00:28 Dose: 80 mg 32 year old woman wit PMhx of hypertension who presented at 37 weeks twin gestation with hypertension. # hypertesnion likely due to Preeclampisia BP stable Continue Procardia XL 30mg Daily if BP remains moderated can be discharged in AM continue labetealol PRN for very high pressures Thank you will follow Delano Izquierdo DO
[2017-08-19] MEDS: SIMETHICONE 80 MG TAB.CHEW (FP) PO PRN ×2 (00:47→14:16)
[2017-08-19] MEDS: LABETALOL HCL 200 MG TABLET (FP) PO PRN (06:00)
--- NOTE | 2017-08-19 07:00 | DS ---
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 Vital Signs: Vital Signs Temperature 98.5 F 08/19/17 06:00 Pulse Rate 64 08/19/17 06:00 Respiratory Rate 20 08/19/17 06:00 Blood Pressure 156/94 08/19/17 06:01 O2 Sat by Pulse Oximetry (%) 96 08/16/17 20:20 Constitutional: Yes: Well Nourished, No Distress Cardiovascular: Yes: WNL Gastrointestinal: Yes: WNL, Soft, Abdomen, Obese ....Post : Yes: Uterus firm, Uterus non-tender Breast(s): Yes: WNL Musculoskeletal: Yes: WNL Extremities: Yes: WNL Edema: No Wound/Incision: Yes: Clean/Dry, Open to air, Dressing Removed Neurological: Yes: WNL, Alert, Oriented Labs: CBC, BMP 08/18/17 07:15 08/18/17 07:15 Delivery - Delivery Section: Low Flap Transverse Type of Anesthesia: Spinal Episiotomy/Laceration: None EBL (cc): 600 Delivery, Single - [place] Feeding Plan Initial Plan: Exclusive throughout hospitalization Delivery, Multiple Births - Stages of Labor Delivery Baby "A" Date: 08/15/17 Time: 18:19 Delivery Baby "B" Date: 08/15/17 Time: 18:22 Placenta/Membranes "A" Date: 08/15/17 Time: 18:18 Placenta/Membranes "B" Date: 08/15/17 Time: 18:21 - Condition of Multiple Births [place] 1 (A) Paginator/Internal Combustion Engine Inspector Present: Yes Paginator: Gino Fuentes Infant Gender: Male Weight: 6 lb 7 oz Total Hours ROM (HRS/MINS): 1 min 2 (B) Paginator/Internal Combustion Engine Inspector Present: Yes Paginator: Gino Fuentes Infant Gender: Male Weight: 5 lb 5 oz Total Hours ROM (HRS/MINS): 1 min - [place] 1 (A) 1 Minute Score: 8 1 (A) 5 Minutes Score: 9 [place] 2 (B) 1 Minute Score: 9 [place] 2 (B) 5 Minutes Score: 9 Discharge Summary Reason For Visit: Current Active Problems 37 weeks gestation of (Acute) Status post primary low transverse section (Acute) Twin gestation in third trimester (Acute) Procedures: Principal: Primary Section. BIlateral Salpingectomy Condition: Good - Instructions Diet, Activity, Other Instructions: Physical activity Resume your normal everyday activity as tolerated no heavy lifting or exercise until seen by your surgeon. You may walk unlimited andreas of and climb stairs. You may resume driving the car when you feel safe and comfortable behind the wheel. No sexual activity as instructed. Wound care If you have a bandage, leave it on, and keep dry for 48-72 hours. After that time discard the outer bandage. If they are tapes on the skin under the out of bandage leave them in place. They will peel off in the next 7 to 10 days. Do Not Peel them off. You may shower the day after surgery. If there are tapes present on the skin, you may shower over them. Diet There are no dietary restrictions. Eat healthy, high-fiber foods. Drink 6 to 8 glasses of liquid each day. This will assist in keeping your bowels are regular. Pain management You may take Tylenol or acetaminophen or Ibuprofen (for example, Motrin, Advil etc.) from my pain prescription medication is ordered should be taken as prescribed for moderate to severe pain. Call MD for any of the following: Severe pain not relieved by medication Fever of 101 or higher Excessive bleeding or drainage on dressing Inability to urinate Disposition: HOME - Home Medications Comprehensive Discharge Medication List: Ambulatory Orders Labetalol HCl [Normodyne -] 200 mg PO BID #60 tablet 07/25/17 Pnv No.95/Ferrous Fum/Folic AC [ Vitamin Tablet] 1 each PO DAILY Oxycodone HCl/Acetaminophen [Percocet 5-325 mg Tablet] 2 tab PO Q4H #20 tablet MDD 6 08/19/17
[2017-08-19 09:47] VITALS: TEMP 97.9
[2017-08-19] MEDS ORDERED: NIFEdipine E.R. 30 MG TABLET (FP) PO SCH ×2 (10:02→10:30)
[2017-08-19] MEDS: PRENATAL VITAMINS W/ FOLIC ACID TABLET (FP) PO SCH (10:20)
[2017-08-19] MEDS: ENOXAPARIN NA (PORCINE) 40 MG/0.4 ML DISP.SYRIN SQ SCH (10:20)
--- NOTE | 2017-08-19 10:23 | PN ---
Progress Note (short form) - Note Progress Note: Renal Follow up for Hypertension Pt seen and examined at the bedside no acute complaints BP noted to be high this am, received Labetalol once this am no LENZ, blurry vision, dizziness Vital Signs Temperature 97.9 F 08/19/17 09:46 Pulse Rate 92 H 08/19/17 09:46 Respiratory Rate 20 08/19/17 09:46 Blood Pressure 146/93 08/19/17 09:47 O2 Sat by Pulse Oximetry (%) 96 08/16/17 20:20 Intake & Output 08/16/17 08/17/17 08/18/17 08/19/17 23:59 23:59 23:59 23:59 Intake Total 1820 1300 Output Total 3800 1600 2200 Balance -1980 -1600 -900 NAD awake and alert No LE edema CBC, BMP 08/18/17 07:15 08/18/17 07:15 Current Medications Acetaminophen (Tylenol -) 650 mg PO Q4H PRN PRN Reason: FEVER Last Admin: 08/18/17 17:41 Dose: 650 mg Bisacodyl (Dulcolax Suppository -) 10 mg RC PRN PRN PRN Reason: CONSTIPATION Last Admin: 08/18/17 17:42 Dose: 10 mg Diphenhydramine HCl (Benadryl Injection -) 25 mg IVPUSH Q4H PRN PRN Reason: FOR ITCHING Last Admin: 08/16/17 23:08 Dose: 25 mg Enoxaparin Sodium (Lovenox -) 40 mg SQ DAILY [facility] Last Admin: 08/19/17 10:20 Dose: 40 mg Labetalol HCl (Normodyne -) 200 mg PO Q6H PRN PRN Reason: HYPERTENSION Last Admin: 08/19/17 06:00 Dose: 200 mg Methylergonovine Maleate (Methergine Injection -) 0.2 mg IM Q4H PRN PRN Reason: Excessive Bleeding (L&D) Nifedipine (Procardia Xl -) 30 mg PO BID [facility] Last Admin: 08/19/17 10:20 Dose: 30 mg Ondansetron HCl (Zofran Injection) 4 mg IVPUSH Q6H PRN PRN Reason: NAUSEA AND/OR VOMITING Oxycodone HCl (Roxicodone -) 5 mg PO Q4H PRN PRN Reason: PAIN LEVEL 1-5 Last Admin: 08/18/17 17:42 Dose: 5 mg Oxycodone HCl (Roxicodone -) 10 mg PO Q4H PRN PRN Reason: PAIN LEVEL 6-10 Last Admin: 08/17/17 12:45 Dose: 10 mg Multivit/Folic Acid/Iron ( Vitamins (Sjr) -) 1 tab PO DAILY [facility] Last Admin: 08/19/17 10:20 Dose: 1 tab Simethicone (Mylicon -) 80 mg PO Q4H PRN PRN Reason: GAS Last Admin: 08/19/17 00:47 Dose: 80 mg 32 year old woman wit PMhx of hypertension who presented at 37 weeks twin gestation with hypertension. # hypertesnion due to Preeclampisia BP has overall been better controlled, however pt has a tendency to have high AM BP's Will change Nifedpine ER to BID (will be discharged on Nifedpine ER BID, w/o labetalol) to get AM dose now, would monitor for ~2 hours ok for discharge if BP improved to below 150/90 [facility] advised to have BP cuff and monitor at home to follow up in our office in 1 week Thank you Delano Izquierdo DO
[2017-08-19] MEDS: NIFEdipine E.R. 30 MG TABLET (FP) PO SCH (10:34)
[2017-08-19 13:36] VITALS: BP 121/90; PULSE 81
[2017-08-19] MEDS: ACETAMINOPHEN 325 MG TABLET (FP) PO PRN (14:15)
--- NOTE | 2017-08-22 13:14 | PATH ---
Surgical Pathology Report Patient Name: SALIMA TENA Med. Rec. 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 Specimen(s) Received A: PLACENTA, TWIN A B: PLACENTA,TWIN B C: RIGHT PORTION FALLOPIAN TUBE D: LEFT PORTION FALLOPIAN TUBE Clinical History , 37.1 gestational weeks, primary [id number] Final Diagnosis A. PLACENTA A, SECTION: 387 g THIRD TRIMESTER PLACENTA WITH TRIVASCULAR UMBILICAL CORD AND UNREMARKABLE PLACENTAL MEMBRANES. B. PLACENTA B, SECTION: 348 g THIRD TRIMESTER PLACENTA WITH TRIVASCULAR UMBILICAL CORD AND UNREMARKABLE PLACENTAL MEMBRANES. C. FALLOPIAN TUBE, RIGHT, PARTIAL EXCISION: FULL LUMINAL PORTION OF FALLOPIAN TUBE WITH VASCULAR CONGESTION. D. FALLOPIAN TUBE, LEFT, PARTIAL EXCISION: FULL LUMINAL PORTION OF FALLOPIAN TUBE WITH VASCULAR CONGESTION. Electronically Signed Cynthia Locke M.D. Gross Description A. The specimen is received fresh labeled "placenta A," and is a 387 gram, 16.0 x 13.5 x 2.8 cm. placenta with attached membranes and umbilical cord. The attached membranes are harris, translucent with focal opacities and insert marginally. The umbilical cord measures 11.5 cm. in length and averages 1 cm. in diameter. The cord inserts eccentrically, 2.5 cm. to the nearest margin. No true knots or strictures are identified. Cut surface of the umbilical cord reveals 3 vessels. The surface is da silva-blue with minimal fibrin deposition and appropriate caliber vessels. The maternal surface is red-brown with focal defects. Sectioning reveals red-brown, spongy parenchyma. No lesions are identified. Beverage [employer] sections are submitted in three cassettes as follows: 1- membrane rolls and umbilical cord; 2-3- full thickness sections of placenta. B. The specimen is received fresh labeled "placenta B" and is a 348 gram, 15.5 x 13.0 x 2.7 cm. placenta with attached membranes and umbilical cord. The attached membranes are harris, thick, cloudy and insert marginally. The umbilical cord measures 12 cm. in length and averages 1 cm. in diameter. The cord inserts eccentrically, 2.5 cm. to the nearest margin. No true knots or strictures are identified. Cut surface of the umbilical cord reveals 3 vessels. The surface is da silva-blue with minimal fibrin deposition and appropriate caliber vessels. The maternal surface is red-brown with focal defects. Sectioning reveals red-brown, spongy parenchyma. No lesions are identified. Beverage Host sections are submitted in three cassettes as follows: 1- membrane rolls and umbilical cord; 2-3- full thickness sections of placenta. C. Received in formalin labeled "right portion of fallopian tube," is a 9.5 cm in length fimbriated fallopian tube. The outer surface is da silva purple and smooth. Sectioning reveals an unremarkable lumen. Beverage Host sections are submitted in one cassette. D. Received in formalin labeled "left portion of fallopian tube," is an 8 cm in length fimbriated fallopian tube. The outer surface is da silva purple and smooth. Sectioning reveals an unremarkable lumen. Beverage Host sections are submitted in 2 cassettes as follows: 1-fimbria; 0-kiawo-zlnrsatw of fallopian tube. 08/18/2017 formerly [facility]08/18/2017
== END 2017-08-19 17:30 | disposition home or self-care (01) | DRG 765 ==
LOC: JDEL 12:40 → JLDR 13:20 → J3W 08-16 14:59
PROVIDERS: ADMIT Obstetrics & Gynecology; ATTEND Obstetrics & Gynecology
PROC: 10D00Z1 Extraction of Products of Conception, Low, Open Approach (ICD-10-PCS; principal; 2017-08-15)
PROC: 0UB70ZZ Excision of Bilateral Fallopian Tubes, Open Approach (ICD-10-PCS; 2017-08-15)
DX: O32.8XX1 Maternal care for other malpresentation of fetus, fetus 1 (principal); O30.003 Twin pregnancy, unspecified number of placenta and unspecified number of amniotic sacs, third trimester; O16.4 Unspecified maternal hypertension, complicating childbirth; O32.2XX1 Maternal care for transverse and oblique lie, fetus 1; O11.4 Pre-existing hypertension with pre-eclampsia, complicating childbirth; Z3A.37 37 weeks gestation of pregnancy; Z37.2 Twins, both liveborn; Z30.2 Encounter for sterilization
CPT/HCPCS: 36415; 36600; 71045-TC-FY; 80048; 80053; 81003; 81015; 82570; 82803; 82977; 83010; 83735; 84156; 84450; 84460; 84550; 85025; 85032; 85044; 85610; 85730; 86593; 86850; 86900; 86901; 87389; 88302-TC; 88307-TC; J0131; J7030